=== PATIENT | female | born 1945 | race African-American/Black ===

== ENCOUNTER 2016-04-05 18:00 | Emergency (ER) | payer OTHER ==
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
[2016-04-05 18:06] VITALS: TEMP 97.8; BMI 22.3
[2016-04-05 18:51] VITALS: BP 180/80; PULSE 76
== END 2016-04-05 18:50 | disposition home or self-care (01) ==
LOC: FER 18:00
DX: Z04.1 Encounter for examination and observation following transport accident (principal); V43.52XA Car driver injured in collision with other type car in traffic accident, initial encounter; Y93.89 Activity, other specified; Y92.410 Unspecified street and highway as the place of occurrence of the external cause; E78.5 Hyperlipidemia, unspecified
CPT/HCPCS: 99282-25